=== PATIENT | female | born 1990 | race Two or more races ===

== ENCOUNTER 2017-12-07 06:33 | Inpatient (IN) | payer OTHER ==
[~2017-12-07] VITALS: Ht 162.6 cm; Wt 3.2 kg
[~2017-12-07 06:33] MED LIST: CEFTIN250 MG PO; FOLIC ACID0.4 MG; MOTRIN800 MG PO
== END 2017-12-10 10:53 | disposition home or self-care (01) | DRG 766 ==
LOC: O/R 06:33 → OB/GYN 06:33
PROVIDERS: Specialist
PROC: 4A1HXCZ Monitoring of Products of Conception, Cardiac Rate, External Approach (ICD-10-PCS; 2017-12-07)
PROC: 4A033R1 Measurement of Arterial Saturation, Peripheral, Percutaneous Approach (ICD-10-PCS; 2017-12-07)
PROC: 10D00Z0 Extraction of Products of Conception, High, Open Approach (ICD-10-PCS; principal; 2017-12-07 07:00)
DX: O34.212 Maternal care for vertical scar from previous cesarean delivery (principal); Z3A.39 39 weeks gestation of pregnancy; Z37.0 Single live birth

== ENCOUNTER 2021-12-10 19:30 | Emergency (ER) | payer OTHER ==
[~2021-12-10] VITALS: Ht 162.6 cm; Wt 86.2 kg
== END 2021-12-11 00:06 | disposition home or self-care (01) ==
LOC: ER 19:30
DX: O20.8 Other hemorrhage in early pregnancy (principal); Z3A.09 9 weeks gestation of pregnancy

== ENCOUNTER 2022-01-18 23:16 | Emergency (ER) | payer OTHER ==
[~2022-01-18] VITALS: Ht 162.6 cm; Wt 90.7 kg
[2022-01-18] MEDS ORDERED: PRENA1 CHEW TA1.4 MG (23:40)
[2022-01-19] MEDS ORDERED: BUTALBIT-ACETA1 EACH PO (01:15)
== END 2022-01-19 01:18 | disposition home or self-care (01) ==
LOC: ER 23:16
DX: O26.892 Other specified pregnancy related conditions, second trimester (principal); Z3A.17 17 weeks gestation of pregnancy; Z37.0 Single live birth; R51.9 Headache, unspecified

== ENCOUNTER → 2022-06-10 | Outpatient (CLI) | payer OTHER ==
[~2022-06-10] MED LIST changes: +BUTALBIT-ACETA1 EACH PO; +PRENA1 CHEW TA1.4 MG
== END | disposition home or self-care (01) ==
LOC: NST 15:52
PROVIDERS: ATTEND Obstetrics & Gynecology
DX: Z34.83 Encounter for supervision of other normal pregnancy, third trimester (principal)

== ENCOUNTER 2022-06-14 09:38 | Inpatient (IN) | payer OTHER ==
[~2022-06-14] VITALS: Ht 162.6 cm; Wt 104.8 kg
== END 2022-06-17 13:31 | disposition home or self-care (01) | DRG 786 ==
LOC: LDR 09:38 → OB/GYN 09:38
PROVIDERS: ADMIT Obstetrics & Gynecology; ATTEND Obstetrics & Gynecology
PROC: 4A1HXCZ Monitoring of Products of Conception, Cardiac Rate, External Approach (ICD-10-PCS; 2022-06-14)
PROC: 10D00Z1 Extraction of Products of Conception, Low, Open Approach (ICD-10-PCS; principal; 2022-06-14 11:00)
DX: O34.211 Maternal care for low transverse scar from previous cesarean delivery (principal); O60.14X0 Preterm labor third trimester with preterm delivery third trimester, not applicable or unspecified; O32.1XX0 Maternal care for breech presentation, not applicable or unspecified; Z3A.36 36 weeks gestation of pregnancy; Z37.0 Single live birth; Z20.822 Contact with and (suspected) exposure to COVID-19

== ENCOUNTER 2022-07-05 22:32 | Inpatient (IN) | payer OTHER ==
[~2022-07-05] VITALS: Ht 162.6 cm; Wt 99.8 kg
[2022-07-05] MEDS ORDERED: IRON236 MG PO (23:09)
== END 2022-07-10 10:25 | disposition home or self-care (01) | DRG 863 ==
LOC: ER 22:32 → OB/GYN 07-06 09:31
PROVIDERS: ADMIT Obstetrics & Gynecology; ATTEND Obstetrics & Gynecology
PROC: BW21ZZZ Computerized Tomography (CT Scan) of Abdomen and Pelvis (ICD-10-PCS; 2022-07-05)
PROC: 8E0ZXY6 Isolation (ICD-10-PCS; principal; 2022-07-06)
DX: T81.49XA Infection following a procedure, other surgical site, initial encounter (principal); L76.34 Postprocedural seroma of skin and subcutaneous tissue following other procedure; B96.29 Other Escherichia coli [E. coli] as the cause of diseases classified elsewhere; Z20.822 Contact with and (suspected) exposure to COVID-19